=== PATIENT | male | born 1955 | race Caucasian/White ===

== ENCOUNTER 2024-07-27 08:26 | Day surgery (SDC) | payer MEDICARE ==
[2024-07-27] MEDS ORDERED: LIDOCAINE 1%-EPI 1:100,000 20 ML VIAL ONE (08:30)
[2024-07-27] MEDS ORDERED: BUPIVACAINE 0.5 % PF 150 MG/30 ML VIAL ONE (08:30)
[2024-07-27] MEDS ORDERED: MORPHINE SULFATE INJ 2 MG/ML DISP.SYRIN IV PRN (11:30)
[2024-07-27] MEDS ORDERED: KETOROLAC TROMETHAMINE INJ 30 MG/ML VIAL IM/IV PRN (11:30)
[2024-07-27] MEDS ORDERED: ONDANSETRON HCL/PF 4 MG/2 ML VIAL IVP PRN (11:30)
[2024-07-27] MEDS ORDERED: FENTANYL PF 100MCG/2ML AMPUL ONE (11:39)
[2024-07-27] MEDS ORDERED: MIDAZOLAM HCL 2 MG/2ML VIAL ONE (11:40)
[2024-07-27] MEDS ORDERED: LIDOCAINE 1% INJ 50 ML MDV IJ ONE (12:58)
== END 2024-07-27 15:00 | disposition home or self-care (01) ==
LOC: DS 08:26
PROVIDERS: ATTEND Surgery
DX: K40.30 Unilateral inguinal hernia, with obstruction, without gangrene, not specified as recurrent (principal); F17.210 Nicotine dependence, cigarettes, uncomplicated; Z79.899 Other long term (current) drug therapy
CPT/HCPCS: 49507; 64425; J1885; J0690; J3490 ×6; J1100; J2704; J3010; J0330; J2405; J7030; J2250; C1781